=== PATIENT | male | born 1945 | race Caucasian/White ===

== ENCOUNTER 2018-09-05 17:04 | Outpatient (CLI) | payer MEDICARE | END 2018-09-05 17:05 | disposition critical access hospital (66) | LOC: EMS 17:04 | PROVIDERS: ATTEND Surgery | DX: R06.02 Shortness of breath (principal); R05 Cough | CPT/HCPCS: A0425; A0429 ==

== ENCOUNTER 2018-09-05 17:24 | Emergency (ER) | payer MEDICARE, OTHER ==
[2018-09-05 17:44] VITALS: BP 137/79
--- NOTE | 2018-09-05 18:28 | XRAY Report ---
Reason: SOA, wheezing Procedure Date: 09/05/2018 Accession Number: [id number] / [id number] Procedure: XR - Chest 2 View X-Ray CPT Code: 92183 FULL RESULT: EXAM: CHEST RADIOGRAPHY EXAM DATE: 09/05/2018 06:14 PM. CLINICAL HISTORY: Shortness of air, wheezing COMPARISON: None. TECHNIQUE: 2 views. FINDINGS: Lungs/Pleura: The AP view is limited due to technical overpenetration. No consolidation, pleural effusion or definite pneumothorax is seen. No acute findings are seen on the lateral view. Mediastinum: Heart and mediastinal contours are unremarkable. IMPRESSION: The AP view is limited due to technical overpenetration. No consolidation, pleural effusion or definite pneumothorax is seen. No acute findings are seen on the lateral view. RADIA
--- NOTE | 2018-09-05 18:51 | ED Physician Documentation ---
PD HPI DYSPNEA - Stated complaint Stated Complaint: SOA - Chief complaint Chief Complaint: Resp - History obtained from History obtained from: Patient, EMS - History of Present Illness Timing - onset: Yesterday (feeling of wheezing and dyspnea, for which he would usually take nebulizer, but is out of meds. [facility]. Out of meds.) Timing - onset during: Rest, Light activity Timing - duration: Days (2) Timing - details: Gradual onset, Still present, Waxing and waning Inciting event(s): Out of meds, Other (COPD). No: URI Improved by: Inhaler/neb Associated symptoms: Cough (chronic), Wheezing. No: Hemoptysis, Bilateral edema Similar symptoms before: Diagnosis (COPD) Recently seen: Not recently seen Review of Systems Constitutional: denies: Fever, Chills, Myalgias Nose: denies: Rhinorrhea / runny nose, Congestion Throat: denies: Sore throat Cardiac: denies: Chest pain / pressure, Palpitations Respiratory: reports: Dyspnea, Cough, Wheezing GI: denies: Abdominal Pain, Nausea, Vomiting Skin: denies: Rash, Lesions PD PAST MEDICAL HISTORY - Past Medical History Past Medical History: Yes Cardiovascular: [place] Respiratory: COPD Neuro: CVA Endocrine/Autoimmune: Type 2 diabetes Psych: Post traumatic stress disorder - Past Surgical History Past Surgical History: Yes General: Hiatal hernia repair HEENT: Tonsil/Adenoidectomy - Present Medications Home Medications: Ambulatory Orders Medication Instructions Recorded Confirmed Albuterol 2.5 mg INH Q4H PRN 09/05/18 09/05/18 Albuterol 2.5 mg INH Q4H PRN #15 neb 09/05/18 Ipratropium [Atrovent] 0.5 mg INH BID #30 neb 09/05/18 Ipratropium/Albuterol [Duoneb] 3 ml INH 09/05/18 - Allergies Allergies/Adverse Reactions: Allergies Allergy/AdvReac Type Severity Reaction Status Date / Time disulfiram [From Antabuse] Allergy Hives Verified 09/05/18 17:39 Iodinated Contrast- Oral and Allergy Hives Verified 09/05/18 17:39 IV Dye - Social History Does the pt smoke?: Yes Smoking Status: Current every day smoker Does the pt drink ETOH?: No Does the pt have substance abuse?: No - Immunizations Immunizations are current?: Yes - POLST Patient has POLST: No PD ED PE NORMAL - Vitals Vital signs reviewed: Yes - General General: Alert and oriented X 3, No acute distress, Well developed/nourished - HEENT HEENT: Pharynx benign - Neck Neck: Supple, no meningeal sign, No adenopathy - Cardiac Cardiac: RRR, No murmur - Respiratory Respiratory: No: Clear bilaterally (diffuse wheezing without coarse sounds. ) - Abdomen Abdomen: Soft, Non tender - Derm Derm: Normal color, Warm and dry - Extremities Extremities: No edema, No calf tenderness / cord - Neuro Neuro: Alert and oriented X 3, No motor deficit, Normal speech Results - Vitals Vitals: Vital Signs - 24 hr 09/05/18 09/05/18 17:33 17:44 Temperature 37.4 C Heart Rate 108 H Respiratory 20 Rate Blood Pressure 141/106 H 137/79 H O2 Saturation 100 Oxygen O2 Source Nasal cannula Oxygen Flow Rate 3 - Rads (name of study) chest Radiology: Prelim report reviewed (COPD; no infiltrates), EMP read contemporaneously PD MEDICAL DECISION MAKING - ED course Complexity details: considered differential (He had run out of his nebulizer medicines and it is due in the mail this coming week. He was having dyspnea and wheezing at home and called EMS. He is feeling improved on route with nebulizer treatments. He feels that he would not of had problems had he had his normal nebulizer. He denies chest cold symptoms.), d/w patient Departure - Departure Disposition: 01 Home, Self Care Clinical Impression: Acute exacerbation of COPD with asthma Dyspnea Qualifiers: Dyspnea type: shortness of breath Qualified Code(s): R06.02 - Shortness of breath Condition: Stable Record reviewed to determine appropriate education?: Yes Instructions: ED COPD Flare Prescriptions: Albuterol 2.5 mg INH Q4H PRN #15 neb PRN Reason: Wheezing Ipratropium [Atrovent] 0.5 mg INH BID #30 neb Comments: Use your albuterol nebulizer 3-4 times a day as needed for wheezing. Add the ipratropium twice daily to that. Continue your other usual medications. Recheck if worsening symptoms over the next few days. Discharge Date/Time: 09/05/18 19:36
== END 2018-09-05 19:36 | disposition home or self-care (01) ==
LOC: EDUNIT# → ED 17:24
DX: J44.1 Chronic obstructive pulmonary disease with (acute) exacerbation (principal); I25.2 Old myocardial infarction; Z86.73 Personal history of transient ischemic attack (TIA), and cerebral infarction without residual deficits; E11.9 Type 2 diabetes mellitus without complications
CPT/HCPCS: 71046; 99283

== ENCOUNTER 2018-09-28 00:42 | Outpatient (CLI) | payer MEDICARE | END 2018-09-28 00:43 | disposition critical access hospital (66) | LOC: EMS 00:42 | PROVIDERS: ATTEND Surgery | DX: R06.02 Shortness of breath (principal) | CPT/HCPCS: A0425; A0427 ==

== ENCOUNTER 2018-09-28 01:03 | Emergency (ER) | payer MEDICARE ==
[2018-09-28 01:00] LABS: BASOPHILS # (AUTO) 0.1 10^3/uL (0.0-0.1); BASOPHILS % (AUTO) 0.9 %; EOSINOPHILS # (AUTO) 0.2 10^3/uL (0.0-0.7); EOSINOPHILS % (AUTO) 2.5 %; LYMPHOCYTES # (AUTO) 2.9 10^3/uL (1.5-3.5); LYMPHOCYTES % (AUTO) 29.9 %; MEAN CORPUSCULAR HEMOGLOBIN 30.8 pg (27.0-31.0); MEAN CORPUSCULAR HGB CONC 33.7 g/dL (32.0-36.0); MEAN CORPUSCULAR VOLUME 91.4 fL (80.0-94.0); MEAN PLATELET VOLUME 8.8 fL (7.4-11.4); MONOCYTES # (AUTO) 0.6 10^3/uL (0.0-1.0); MONOCYTES % (AUTO) 6.4 %; NEUTROPHILS # (AUTO) 5.7 10^3/uL (1.5-6.6); NEUTROPHILS % (AUTO) 60.3 %; PLT - PLATELET COUNT 145 10^3/uL (130-450); RED BLOOD COUNT 4.54 10^6/uL (4.70-6.10); WHITE BLOOD COUNT 9.5 x10^3/uL (4.8-10.8)
--- NOTE | 2018-09-28 01:06 | ED Physician Documentation ---
PD HPI DYSPNEA - Stated complaint Stated Complaint: SOA - Chief complaint Chief Complaint: Resp - History obtained from History obtained from: Patient, EMS - History of Present Illness Timing - onset: Last night Timing - duration: Hours Timing - details: Gradual onset Pain level now: 0 Worsened by: Exertion Associated symptoms: Wheezing. No: Fever, Cough (baseline (no worse than usual)), Hemoptysis, Chest pain / discomfort Similar symptoms before: Diagnosis (COPD) Recently seen: Emergency Dept (last month for dyspnea) - Additional information Additional information: c/o dyspnea and BLE weakness, both worsening over 1-2 days Review of Systems Constitutional: reports: Reviewed and negative Cardiac: reports: Reviewed and negative Respiratory: reports: Dyspnea, Wheezing. denies: Cough, Hemoptysis GI: reports: Reviewed and negative PD PAST MEDICAL HISTORY - Past Medical History Cardiovascular: [place] Respiratory: COPD Neuro: CVA Endocrine/Autoimmune: Type 2 diabetes Psych: Post traumatic stress disorder - Past Surgical History Past Surgical History: Yes General: Hiatal hernia repair HEENT: Tonsil/Adenoidectomy - Present Medications Home Medications: Ambulatory Orders Medication Instructions Recorded Confirmed Albuterol 2.5 mg INH Q4H PRN 09/05/18 09/05/18 Albuterol 2.5 mg INH Q4H PRN #15 neb 09/05/18 Ipratropium [Atrovent] 0.5 mg INH BID #30 neb 09/05/18 Ipratropium/Albuterol [Duoneb] 3 ml INH 09/05/18 predniSONE [Prednisone] 40 mg PO DAILY #6 tablet 09/28/18 - Allergies Allergies/Adverse Reactions: Allergies Allergy/AdvReac Type Severity Reaction Status Date / Time disulfiram [From Antabuse] Allergy Hives Verified 09/28/18 01:08 PDT Iodinated Contrast- Oral and Allergy Hives Verified 09/28/18 01:08 PDT IV Dye - Social History Does the pt smoke?: Yes Smoking Status: Current every day smoker Does the pt drink ETOH?: No Does the pt have substance abuse?: No - Immunizations Immunizations are current?: Yes - POLST Patient has POLST: No PD ED PE NORMAL - Vitals Vital signs reviewed: Yes - General General: Alert and oriented X 3, No acute distress, Well developed/nourished - Cardiac Cardiac: RRR, No murmur - Respiratory Respiratory: No respiratory distress - Abdomen Abdomen: Soft, Non tender - Derm Derm: Normal color, Warm and dry - Extremities Extremities: No edema - Neuro Neuro: Alert and oriented X 3 PD ED PE EXPANDED - Respiratory Respiratory: Wheezing, Decreased breath sounds Results - Vitals Vitals: Oxygen O2 Source Nasal cannula Oxygen Flow Rate 3 - EKG (time done) No standard instances Rate: Rate (enter#) (101), Tachy Rhythm: Sinus tachycardia [place]: LAD Intervals: Normal IA, RBBB QRS: Normal Ischemia: Normal ST segments, Q waves (II, III, aVF) - Labs Labs: Laboratory Tests 09/28/18 09/28/18 01:45 PST 01:45 PST WBC 9.5 RBC 4.54 L Hgb 14.0 Hct 41.5 L MCV 91.4 MCH 30.8 MCHC 33.7 RDW 14.0 Plt Count 145 MPV 8.8 Neut # (Auto) 5.7 Lymph # (Auto) 2.9 [place] # (Auto) 0.6 Eos # (Auto) 0.2 Baso # (Auto) 0.1 Sodium 137 Potassium 3.5 Chloride 97 L Carbon Dioxide 27 Anion Gap 13.0 BUN 20 Creatinine 0.8 Estimated GFR (MDRD) 96 Glucose 374 H Calcium 9.0 Total Bilirubin 0.9 AST 23 ALT 15 Alkaline Phosphatase 62 Total Protein 7.3 Albumin 3.8 Globulin 3.5 Albumin/Globulin Ratio 1.1 Lipase 19 L PD MEDICAL DECISION MAKING - ED course Complexity details: reviewed old records, reviewed results, re-evaluated patient, considered differential, d/w patient ED course: patient reported improvement with nebs in ED. also given steroid. no radiology studies, as patient feels confident this is c/w his COPD exacerbation and no clinical indications of other diagnoses such as pneumonia or pneumothorax. c/o BLE weakness, but he normally uses a wheelchair. Departure - Departure Disposition: 01 Home, Self Care Clinical Impression: Acute exacerbation of COPD with asthma, Weakness Condition: Good Instructions: ED COPD Flare, ED Weakness [facility]O Follow-Up: [facility] [Provider Group] [facility] [Provider Group] Prescriptions: predniSONE [Prednisone] 40 mg PO DAILY #6 tablet Discharge Date/Time: 09/28/18 06:41
[2018-09-28 01:08] LABS: ALBUMIN 3.8 g/dL (3.2-5.5); ALBUMIN/GLOBULIN RATIO 1.1 (1.0-2.2); BILIRUBIN,TOTAL 0.9 mg/dL (0.2-1.0); CREATININE 0.8 mg/dL (0.6-1.2); TOTAL PROTEIN 7.3 g/dL (6.7-8.2)
[2018-09-28] MEDS ORDERED: ALBUTEROL NEB 2.5 MG/3 ML INH STA (01:50)
[2018-09-28] MEDS ORDERED: INSULIN REGULAR HUMAN 100 UNIT/1 ML 10 ML MDV IVP STA ×2 (03:30→05:10)
[2018-09-28] MEDS ORDERED: SODIUM CHLORIDE 0.9% 1,000 ML IV ONE (04:17)
[2018-09-28] MEDS ORDERED: SODIUM CHLORIDE 0.9% 1,000 ML IV STA (05:10)
[2018-09-28 06:18] VITALS: BP 149/89
== END 2018-09-28 06:41 | disposition home or self-care (01) ==
LOC: EDUNIT# → ED 01:03
DX: J44.1 Chronic obstructive pulmonary disease with (acute) exacerbation (principal); R53.1 Weakness; E11.9 Type 2 diabetes mellitus without complications; F43.10 Post-traumatic stress disorder, unspecified; R00.0 Tachycardia, unspecified; F17.200 Nicotine dependence, unspecified, uncomplicated; I25.2 Old myocardial infarction; Z79.51 Long term (current) use of inhaled steroids; Z79.52 Long term (current) use of systemic steroids
CPT/HCPCS: 36415; 80053; 83690; 85025; 93005; 94640; 96360; 96361; 99283; 99284; J1815

== ENCOUNTER 2018-11-09 03:26 | Outpatient (CLI) | payer MEDICARE | END 2018-11-09 03:27 | disposition critical access hospital (66) | LOC: EMS 03:26 | PROVIDERS: ATTEND Surgery | DX: R53.1 Weakness (principal); R20.0 Anesthesia of skin; R47.81 Slurred speech; R29.810 Facial weakness; R06.00 Dyspnea, unspecified | CPT/HCPCS: A0425; A0427 ==

== ENCOUNTER 2018-11-09 03:40 | Emergency (ER) | payer MEDICARE ==
--- NOTE | 2018-11-09 03:45 | ED Physician Documentation ---
PD HPI FOCAL NEURO - Stated complaint Stated Complaint: STROKE - Chief complaint Chief Complaint: Neuro - History obtained from History obtained from: Patient, EMS - History of Present Illness Timing - onset: Enter time (02:30), Today Timing - details: Abrupt onset Severity of deficit: Moderate Weakness: Arm, Left Numbness: Face, Arm, Left Associated symptoms: No: Headache, Nausea / vomiting, Seizure, Syncope, Fall, Head injury, Chest pain, Neck pain, Back pain, Fever Contributing factors: positive: Vascular dz (h/o CAD, CVA). negative: Anticoagulated, Atrial fibrillation, Prosthetic heart valve Baseline status: positive: A&OX3, ambulatory, indep, Wheelchair (uses wheelchair at times, but not wheelchair-bound) Similar symptoms before: Diagnosis (CVA) Recently seen: Emergency Dept (T+R last month for COPD exacerbation) - Additional information Additional information: patient was awake and watching TV at home at 2:30 this morning when he noticed LUE weakness and LUE and left facial paresthesias. He says he has some very mild LUE weakness as baseline from previous CVA (approximately 6 years ago), but at 2:30 AM, there was a significant worsening of the weakness, and new onset of decreased sensation of the left arm and left side of his face. Review of Systems Constitutional: denies: Fever, Chills, Sweats Eyes: reports: Reviewed and negative Ears: reports: Reviewed and negative Nose: reports: Reviewed and negative Throat: reports: Reviewed and negative Cardiac: reports: Reviewed and negative Respiratory: reports: Dyspnea, Wheezing. denies: Cough GI: reports: Reviewed and negative : denies: Dysuria, Frequency, Incontinent Skin: reports: Reviewed and negative Musculoskeletal: denies: Neck pain, Back pain Neurologic: reports: Focal weakness, Numbness. denies: Generalized weakness, Altered mental status, Headache, Head injury, LOC PD PAST MEDICAL HISTORY - Past Medical History Cardiovascular: [place] Respiratory: COPD Neuro: CVA Endocrine/Autoimmune: Type 2 diabetes Psych: Post traumatic stress disorder - Past Surgical History Past Surgical History: Yes General: Hiatal hernia repair HEENT: Tonsil/Adenoidectomy - Present Medications Home Medications: Ambulatory Orders Medication Instructions Recorded Confirmed Albuterol 2.5 mg INH Q4H PRN #15 neb 09/05/18 Aspirin [Aspirin EC] 81 mg PO 11/09/18 Atorvastatin [Lipitor] 80 mg 11/09/18 Budesonide/Formoterol Fumarate 10.2 gm IH 11/09/18 [Symbicort 160-4.5 Mcg Inhaler] Gabapentin 300 mg PO TID 11/09/18 11/09/18 Metoprolol Tartrate 25 mg PO 11/09/18 metFORMIN [Glucophage] 500 mg PO ONCE 11/09/18 11/09/18 - Allergies Allergies/Adverse Reactions: Allergies Allergy/AdvReac Type Severity Reaction Status Date / Time disulfiram [From Antabuse] Allergy Hives Verified 09/28/18 01:08 PDT Iodinated Contrast- Oral and Allergy Hives Verified 09/28/18 01:08 PDT IV Dye - Social History Does the pt smoke?: Yes Smoking Status: Current every day smoker Does the pt drink ETOH?: No Does the pt have substance abuse?: No - Immunizations Immunizations are current?: Yes - POLST Patient has POLST: No PD ED PE NORMAL - Vitals Vital signs reviewed: Yes - General General: Alert and oriented X 3, No acute distress, Well developed/nourished - HEENT HEENT: Atraumatic, PERRL, EOMI, Moist mucous membranes - Neck Neck: Supple, no meningeal sign - Cardiac Cardiac: RRR, No murmur - Respiratory Respiratory: No respiratory distress, Other (decreased breath sounds bilaterally with bilateral expiratory wheezing and prolonged expiratory phase) - Abdomen Abdomen: Soft, Non tender, Other (soft, nontender, small, reducible umbilical hernia) - Derm Derm: Normal color, Warm and dry - Extremities Extremities: No edema - Neuro Neuro: Alert and oriented X 3. No: No motor deficit (LUE and LLE weakness (see NIHSS section)), No sensory deficit (decreased (subjective) LTS left side of face and LUE) Eye Opening: Spontaneous Motor: Obeys Commands Verbal: Oriented GCS Score: 15 - Psych Psych: Normal mood, Normal affect NIHSS - Time Time: 04:00 - Level of Consciousness Level of consciousness: (0) Alert, Keenly responsive LOC Questions: (0) Answers both Q's correct LOC Commands: (0) Performs both correctly - Gaze Best Gaze: (0) Normal - Visual Visual: (0) No loss - Facial Palsy Facial Palsy: (0) Normal, symmetrical movement - Motor Arms (both separate) Motor Arm (right): (0) No drift Motor Arm (left): (1) Drift - Motor Legs (both separate) Motor Leg (right): (0) No drift Motor Leg (left): (1) Drift - Limb Ataxia Limb Ataxia: (1) Present in 1 limb - Sensory Sensory: (1) Qogj-bq-xqtynebr loss - Best Language Best Language: (0) No aphasia - Dysarthria Dysarthria: (0) Normal - Extinction and Inattention (formally neg Extinction and inattention: (0) No abnormality - Total Score/Results Total Score/Result: 4 Results - Vitals Vitals: Vital Signs - 24 hr 11/09/18 11/09/18 11/09/18 03:39 04:10 04:18 Temperature 36.8 C Heart Rate 78 77 84 Respiratory 15 16 30 H Rate Blood Pressure 160/80 H 146/93 H 142/71 H O2 Saturation 99 100 100 11/09/18 11/09/18 11/09/18 04:33 05:08 05:19 Temperature 36.8 C Heart Rate 81 79 80 Respiratory 22 29 H 33 H Rate Blood Pressure 137/78 H 137/67 H 129/66 O2 Saturation 100 99 99 11/09/18 11/09/18 11/09/18 05:31 05:40 06:00 Temperature Heart Rate 82 82 82 Respiratory 35 H 39 H 29 H Rate Blood Pressure 143/62 H 151/64 H O2 Saturation 100 100 11/09/18 11/09/18 11/09/18 06:17 06:32 07:02 Temperature Heart Rate 83 82 79 Respiratory 30 H 27 H 30 H Rate Blood Pressure 148/63 H 146/60 H 153/71 H O2 Saturation 100 100 100 11/09/18 11/09/18 11/09/18 07:30 08:00 08:30 Temperature Heart Rate 84 79 79 Respiratory 23 29 H 30 H Rate Blood Pressure 146/64 H 156/68 H 155/70 H O2 Saturation 98 100 100 Oxygen O2 Source Nasal cannula Oxygen Flow Rate 3 - EKG (time done) No standard instances Rate: Rate (enter#) (81) Rhythm: NSR, LAE [place]: LAD Intervals: RBBB QRS: Normal Ischemia: Normal ST segments, Q waves (II, III, aVF) Compare to prior EKG: Unchanged from prior EKG (09/28/18) - Labs Labs: Laboratory Tests 11/09/18 11/09/18 11/09/18 03:45 03:45 03:45 WBC 9.4 RBC 4.35 L Hgb 13.4 L Hct 40.3 L MCV 92.6 MCH 30.9 MCHC 33.4 RDW 13.9 Plt Count 242 MPV 7.2 L Neut # (Auto) 6.1 Lymph # (Auto) 1.9 [place] # (Auto) 0.9 Eos # (Auto) 0.3 Baso # (Auto) 0.1 Absolute Nucleated RBC 0.01 Nucleated RBC % 0.1 PT 11.1 INR 1.0 APTT 28.8 Sodium 138 Potassium 4.6 Chloride 99 L Carbon Dioxide 31 Anion Gap 8.0 BUN 23 H Creatinine 0.6 Estimated GFR (MDRD) 133 Glucose 126 H Calcium 9.3 Troponin I B-Natriuretic Peptide 11/09/18 11/09/18 03:45 03:45 WBC RBC Hgb Hct MCV MCH MCHC RDW Plt Count MPV Neut # (Auto) Lymph # (Auto) [place] # (Auto) Eos # (Auto) Baso # (Auto) Absolute Nucleated RBC Nucleated RBC % PT INR APTT Sodium Potassium Chloride Carbon Dioxide Anion Gap BUN Creatinine Estimated GFR (MDRD) Glucose Calcium Troponin I < 0.04 B-Natriuretic Peptide 125 H - Rads (name of study) CT head Radiology: Prelim report reviewed, See rad report chest xray Radiology: Prelim report reviewed, See rad report PD MEDICAL DECISION MAKING - ED course Complexity details: reviewed old records, reviewed results, re-evaluated patient, considered differential, d/w patient ED course: Telestroke consult obtained (Dr. Corley), recommended tPA. Risks and benefits were explained to patient; he expresses understanding of the risks and benefits of this medication and agrees with recommendation for tPA. Dyspnea improved with duoneb followed by albuterol neb, eventually resolved completely later in ED stay. Dr. Corley recommends admit to [facility], says patient does not need to be transferred. D/W Dr. Marcum (hospitalist at [facility]); she does not feel patient is appropriate to stay at [facility] after receiving tPA. [facility], [facility] available. Patient held in ED until change of shift and I then d/w Dr. Villar (hospitalist at [facility]), who also says patient is inappropriate for [facility] after tPA and recommends transfer. D/W Dr. Teixeira, game author at [facility], accepts transfer to his service. Please note that at no time did Dr. Corley refuse transfer. - Critical Care Time(min): 60 Time Includes: Direct patient care, Review records, Reassess patient, Document care, Coordinate care, Medical consult, See progress note Data interpretation: Labs, Pulse ox, CXR, Prior EKG, See progress note Procedures included in critical care time: See progress note Procedures excluded from critical care time: See progress note - TPA CVA checklist Inclusion crititeria: positive: Sig neuro deficit, CT no bleed, Onset know < 4.5 hr Absolute contraindications: negative: SBP>185 DBP>110 s/p tx, CT shows bleed, CT shows major est CVA, Platelets <100K, PTT > 40, INR >1.7, Known bleeding disorder, Surgery/trauma < 15 days, Seizure at onset, Internal bleed < 22 days, Brain/spine surg < 3 m, Head trauma < 3 m, CVA < 3 months, Any hx ICH, Any hx brain aneurysm, Any hx brain AVM, Any hx brain tumor, Suspect SAH Relative contraindications: negative: Too severe (NIHSS>22), Too mild, Rapid improvement, Glusose <50 >400, Life expectancy < 1 yr, Severe comorbid illness, Bacterial endocarditis, Severe hepatic dz, Severe renal dz, Hemorrhagic eye condition, Septic thrombophlebitis, Infected AV shunt, On coumadin, Advanced age, Left heart thrombus Departure - Departure Disposition: 02 Transfer Acute Care Hosp Clinical Impression: Cerebrovascular accident (CVA) Qualifiers: CVA mechanism: unspecified Qualified Code(s): I63.9 - Cerebral infarction, unspecified Condition: Stable
[2018-11-09 03:56] LABS: BASOPHILS # (AUTO) 0.1 10^3/uL (0.0-0.1); BASOPHILS % (AUTO) 0.9 %; EOSINOPHILS # (AUTO) 0.3 10^3/uL (0.0-0.7); EOSINOPHILS % (AUTO) 3.3 %; HGB - HEMOGLOBIN 13.4 g/dL (14.0-18.0); LYMPHOCYTES # (AUTO) 1.9 10^3/uL (1.5-3.5); LYMPHOCYTES % (AUTO) 20.7 %; MEAN CORPUSCULAR HEMOGLOBIN 30.9 pg (27.0-31.0); MEAN CORPUSCULAR HGB CONC 33.4 g/dL (32.0-36.0); MEAN CORPUSCULAR VOLUME 92.6 fL (80.0-94.0); MEAN PLATELET VOLUME 7.2 fL (7.4-11.4); MONOCYTES # (AUTO) 0.9 10^3/uL (0.0-1.0); MONOCYTES % (AUTO) 10.1 %; NEUTROPHILS # (AUTO) 6.1 10^3/uL (1.5-6.6); PLT - PLATELET COUNT 242 10^3/uL (130-450); RED BLOOD COUNT 4.35 10^6/uL (4.70-6.10); RED CELL DISTRIBUTION WIDTH 13.9 % (12.0-15.0); WHITE BLOOD COUNT 9.4 x10^3/uL (4.8-10.8)
[2018-11-09 03:58] LABS: PT - PROTHROMBIN TIME 11.1 secs (9.9-12.6)
[2018-11-09 04:00] LABS: CALCIUM 9.3 mg/dL (8.5-10.3); CREATININE 0.6 mg/dL (0.6-1.2)
--- NOTE | 2018-11-09 04:09 | CT Report ---
Reason: left-sided weakness Procedure Date: 11/09/2018 Accession Number: [id number] / [id number] Procedure: CT - Head W/O Stroke Protocol CPT Code: FULL RESULT: EXAM: CT HEAD EXAM DATE: 11/09/2018 04:00 AM. CLINICAL HISTORY: Left-sided weakness. COMPARISON: None. TECHNIQUE: Multiaxial CT images were obtained from the foramen magnum to the vertex. Reformats: Sagittal and coronal. IV contrast: None. In accordance with CT protocol optimization, one or more of the following dose reduction techniques were utilized for this exam: automated exposure control, adjustment of mA and/or KV based on patient size, or use of iterative reconstructive technique. FINDINGS: Parenchyma: Encephalomalacia in the right precentral gyrus likely represents an old right MCA infarct. No intraparenchymal hemorrhage. The kong-white matter differentiation is distinct elsewhere in the brain. Extraaxial Spaces: Normal for age. No subdural or epidural collections identified. Ventricles: The ventricles and cortical sulci are moderately enlarged, consistent with age-related tissue loss. Sinuses and orbits: Imaged paranasal sinuses, orbits, and mastoids show no significant abnormality. Bones: No evidence of fracture or calvarial defect. Other: Extensive intracranial atherosclerosis is noted. IMPRESSION: 1. Encephalomalacia in the right precentral gyrus likely represents an old right MCA infarct. 2. No acute intracranial process identified. 3. ASPECTS score is 9 on the right and 10 on the left. RADIA The call report notification system was initiated by Dr. Sulma Ennis at 04:03 hrs on 11/09/18. The above findings were discussed with Dr. Sparks by Dr. Sulma Ennis at 04:07 hrs on 11/09/18.
--- NOTE | 2018-11-09 04:41 | XRAY Report ---
Reason: chest pain Procedure Date: 11/09/2018 Accession Number: [id number] / [id number] Procedure: XR - Chest 1 View X-Ray CPT Code: 01274 FULL RESULT: EXAM: CHEST RADIOGRAPHY EXAM DATE: 11/09/2018 04:13 AM. CLINICAL HISTORY: Chest pain COMPARISON: CHEST 2 VIEW 09/05/2018 5:54 PM. TECHNIQUE: 1 view. FINDINGS: Lungs/Pleura: Blunting of the right lateral costophrenic sulcus region is noted, likely secondary to pleural thickening/scarring. No consolidation. No effusion or definite pneumothorax. Mediastinum: Moderate calcific atherosclerosis. Normal heart size been accounting for lung volumes and technique. Other: At least mild bilateral shoulder degenerative change. IMPRESSION: No acute cardiopulmonary abnormality demonstrated. RADIA
[2018-11-09] MEDS ORDERED: ALTEPLASE 100 MG VIAL ONE (04:45)
[2018-11-09] MEDS ORDERED: WATER FOR INJECTION STERILE IV STA (04:55)
[2018-11-09] MEDS ORDERED: ALTEPLASE IV STA (04:55)
[2018-11-09] MEDS ORDERED: ALBUTEROL NEB 2.5 MG/3 ML INH STA (05:25)
[2018-11-09 09:53] VITALS: BP 156/71
== END 2018-11-09 09:56 | disposition short-term general hospital (02) ==
LOC: EDUNIT# → ED 03:40
DX: I63.9 Cerebral infarction, unspecified (principal); R29.704 NIHSS score 4; G81.94 Hemiplegia, unspecified affecting left nondominant side; J44.9 Chronic obstructive pulmonary disease, unspecified; I45.10 Unspecified right bundle-branch block; K42.9 Umbilical hernia without obstruction or gangrene; E11.9 Type 2 diabetes mellitus without complications; Z79.84 Long term (current) use of oral hypoglycemic drugs; I25.10 Atherosclerotic heart disease of native coronary artery without angina pectoris; Z79.82 Long term (current) use of aspirin; F17.200 Nicotine dependence, unspecified, uncomplicated
CPT/HCPCS: 36415; 70450; 71045; 80048; 83880; 84484; 85025; 85610; 85730; 93005; 94640; 96365; 99291; J2997; Q3014; 99285

== ENCOUNTER 2018-11-09 09:59 | Outpatient (CLI) | payer MEDICARE | END 2018-11-09 10:00 | disposition short-term general hospital (02) | LOC: EMS 09:59 | PROVIDERS: ATTEND Surgery | DX: I63.9 Cerebral infarction, unspecified (principal) | CPT/HCPCS: A0425; A0426 ==